=== PATIENT | male | born 1965 | race Caucasian/White ===

== ENCOUNTER 2017-08-19 07:12 | Inpatient (IN) | payer OTHER ==
[2017-07-23 17:20] LABS: % IMMATURE GRANULYOCYTES 0.2 % (0.0-1.1); ABSOLUTE IMMATURE GRANULOCYTES 0.01 10^3/uL (0.00-0.10); ADD DIFF? NO; ADD MORPH? NO; ADD SCAN? NO; ATYPICAL LYMPHOCYTE FLAG 10 (0-99); FRAGMENT RBC FLAG 20 (0-99); HEMATOCRIT 43.5 % (40.0-51.0); LEFT SHIFT FLG 0 (0-99); LIPEMIA HEMOLYSIS FLAG 90 (0-99); MEAN CELL HEMOGLOBIN 30.9 pg (27.9-34.1); MEAN CELL HEMOGLOBIN CONCENTR. 34.5 g/dL (32.4-36.7); MEAN CELL VOLUME 89.5 fL (81.5-99.8); PLATELET CLUMPS FLAG 10 (0-99); PLATELET COUNT 204 10^3/uL (150-400); RED BLOOD CELL COUNT 4.86 10^6/uL (4.40-6.38); RED CELL DISTRIBUTION WIDTH 12.2 % (11.5-15.2)
[2017-08-19] MEDS ORDERED: LR 1,000 ML IV ONE (07:34)
[2017-08-19] MEDS ORDERED: ROPIVACAINE 0.2% 80 MG, EPINEPHrine 0.2 MG, KETOROLAC TROMETHAMINE 30 MG in BAG 0 ML IU ONE (08:56)
[2017-08-19] MEDS ORDERED: ceFAZolin 2 GM/DEXTROSE 100 ML IV ONE (08:56)
[2017-08-19] MEDS ORDERED: TRANEXAMIC ACID 1,640 MG in NS 100 ML IV ONE (08:56)
[2017-08-19] MEDS ORDERED: ACETAMINOPHEN 325 MG TAB PO ONE (08:56)
[2017-08-19] MEDS ORDERED: POVIDONE-IODINE 20 ML in SODIUM CL IRRIG SOLUTION 500 ML IRR ONE (08:56)
[2017-08-19] MEDS ORDERED: DEXAMETHASONE 4 MG/ML VIAL IVP ONE (08:56)
[2017-08-19] MEDS ORDERED: FAMOTIDINE 20 MG TAB PO ONE (08:56)
[2017-08-19] MEDS ORDERED: ceFAZolin 1 GM VIAL ONE (09:31)
--- NOTE | 2017-08-19 09:38 | PDHPUP ---
History & Physical Update H&P update statement: This history and physical update is based on an assessment of the patient which was completed after admission or registration (within 24 hours), but prior to the surgery/procedure. H&P update: H&P reviewed & patient examined, no change in patient's condition since H&P completed
--- NOTE | 2017-08-19 09:51 | PDANEPAE ---
ANE History of Present Illness L hip resurfacing ANE Past Medical History - Cardiovascular History Hx Hypertension: No Hx Arrhythmias: No Hx Chest Pain: No Hx Coronary Artery / Peripheral Vascular Disease: No Hx CHF / Valvular Disease: No Hx Palpitations: No - Pulmonary History Hx COPD: No Hx Asthma/Reactive Airway Disease: No Hx Recent Upper Respiratory Infection: No Hx Oxygen in Use at Home: No Hx Sleep Apnea: No Sleep Apnea Screening Result - Last Documented: Negative - Neurologic History Hx Cerebrovascular Accident: No Hx Seizures: No Hx Dementia: No - Endocrine History Hx Diabetes: No Obesity: no - Renal History Hx Renal Disorders: No - Liver History Hx Hepatic Disorders: No - Neurological & Psychiatric Hx Hx Neurological and Psychiatric Disorders: No - Cancer History Hx Cancer: No - Congenital Disorder History Hx Congenital Disorders: No - GI History GERD: no Hx Gastrointestinal Disorders: No - Other Health History Other Health History: OA L hip - Chronic Pain History Chronic Pain: Yes - Surgical History Prior Surgeries: L ft 5th metatarsal age 21 ANE Review of Systems Review of Systems: - Exercise capacity METS (RN): 6 METS ANE Patient History - Allergies Allergies/Adverse Reactions: SEA FOOD Allergy (Severe, Uncoded 08/19/17 08:38) Anaphylaxis - Home Medications Home Medications: Naproxen Sodium [Aleve 220 MG (*)] 220 mg PO BID PRN 07/13/17 [Last Taken ] - NPO status NPO Since - Liquids (Date): 08/19/17 NPO Since - Liquids (Time): 06:00 NPO Since - Solids (Date): 08/18/17 NPO Since - Solids (Time): 20:30 - Anes Hx Anes Hx: no prior problems - Smoking Hx Smoking Status: Never smoked Marijuana use: No - Alcohol Use Alcohol Use: Other (one drink/day) - Family Anes Hx Family Anes Hx: none ANE Labs/Vital Signs - Labs Result Diagrams: 07/23/17 17:03 - Vital Signs Blood Pressure: 124/75 Heart Rate: 50 Respiratory Rate: 12 O2 Sat (%): 98 Height: 187.96 cm Weight: 81.647 kg ANE Physical Exam - Airway Neck exam: FROM Mallampati Score: Class 1 Mouth exam: normal dental/mouth exam (lower frontal caps) ANE Anesthesia Plan Anesthesia Plan: spinal
[2017-08-19] MEDS ORDERED: MIDAZOLAM 2 MG/2 ML VIAL IVP ONE (09:52)
[2017-08-19] MEDS ORDERED: BUPIVACAINE 0.5% 30 ML SDV ONE (09:55)
[2017-08-19] MEDS ORDERED: fentaNYL 100 MCG/2 ML INJ ONE ×2 (09:56→11:55)
[2017-08-19] MEDS ORDERED: PROPOFOL 200 MG/20 ML VIAL ONE ×3 (09:57→12:01)
[2017-08-19] MEDS ORDERED: ceFAZolin 1 GM/5 ML SYR ONE (09:59)
--- NOTE | 2017-08-19 10:00 | POSTANESTH ---
Post Anesthetic Evaluation Cardiovascular Status: Similar to Pre-Op Cond Respiratory Status: Normal, Stable Level of Consciousness/Mental Status: Can Participate in Eval Pain Control: Adequate, Prn Tx Ordered Nausea/Vomiting Control: Adequate, Prn Tx Ordered Complications Possibly Related to Anesthesia: None Noted
[2017-08-19] MEDS ORDERED: MIDAZOLAM 2 MG/2 ML VIAL ONE (10:04)
[2017-08-19] MEDS ORDERED: PROPOFOL/EMULSION 500 MG/50 ML BOTTLE IV ONE (10:39)
[2017-08-19] MEDS ORDERED: PHENYLEPHRINE 10 MG/ML SDV ONE (10:47)
--- NOTE | 2017-08-19 12:12 | POSTOPPROG ---
Post Op Note Date of Operation: 08/19/17 Surgeon: Yohan Ram Ad Operations Associate: Bryant Schmidt/Anabel Yusuf Anesthesiologist: Gorge Johnson Anesthesia: IV Sedation, Spinal Post-op Diagnosis: Left hip severe degenerative arthritis. Procedure: Left hip New hip resurfacing arthroplasty. Inf/Abcess present in the surg proc area at time of surgery?: No EBL: 100-500
[2017-08-19] MEDS ORDERED: MAGNESIUM HYDROXIDE 30 ML UDCUP PO PRN (12:13)
[2017-08-19] MEDS ORDERED: diphenhydrAMINE 25 MG CAP PO PRN (12:13)
[2017-08-19] MEDS ORDERED: PROMETHAZINE HCL 25 MG SUPPR PR PRN (12:13)
[2017-08-19] MEDS ORDERED: ONDANSETRON 4 MG/2 ML VIAL IVP PRN (12:13)
[2017-08-19] MEDS ORDERED: KETOROLAC 30 MG/1 ML SDV IVP PRN (12:13)
[2017-08-19] MEDS ORDERED: BISACODYL 10 MG SUPP PR PRN (12:13)
[2017-08-19] MEDS ORDERED: traMADol 50 MG TAB PO PRN (12:13)
[2017-08-19] MEDS ORDERED: LACTULOSE 20 GM/30 ML UDCUP PO PRN (12:13)
[2017-08-19] MEDS ORDERED: ONDANSETRON DISINTEGRATING 4 MG TAB PO PRN (12:13)
[2017-08-19] MEDS ORDERED: TEMAZEPAM 15 MG CAP PO PRN (12:13)
[2017-08-19] MEDS ORDERED: METOCLOPRAMIDE 10 MG/2 ML VIAL IVP PRN (12:13)
[2017-08-19] MEDS ORDERED: PROMETHAZINE HCL 25 MG/ML INJ IVP PRN (12:13)
[2017-08-19] MEDS ORDERED: oxyCODONE IR 5 MG TAB PO PRN (12:13)
[2017-08-19] MEDS ORDERED: DIPHENOXYLATE/ATROPINE LOMOTIL 1 TAB PO PRN (12:13)
[2017-08-19] MEDS ORDERED: POLYETHYLENE GLYCOL 3350 17 GM PKT PO PRN (12:13)
[2017-08-19] MEDS ORDERED: CYCLOBENZAPRINE 10 MG TAB PO PRN (12:13)
[2017-08-19] MEDS ORDERED: TRANEXAMIC ACID 650 MG TAB PO SCH (12:15)
[2017-08-19] MEDS ORDERED: LR 1,000 ML IV SCH (12:30)
[2017-08-19] MEDS ORDERED: NALOXONE HCL 0.4 MG/ML INJ IVP PRN (12:58)
[2017-08-19] MEDS ORDERED: fentaNYL 100 MCG/2 ML INJ IVP PRN (12:58)
--- NOTE | 2017-08-19 13:21 | GOP ---
[f rep st] OPERATIVE REPORT DATE OF OPERATION: 08/19/2017 SURGEON: Yohan Ram MD MANAGER SITE: Bryant cShmidt and Anabel Yusuf. ANESTHESIA: A combination of Marcaine, spinal, and IV sedation. ANESTHESIOLOGIST: Gorge Johnson M.D. PREOPERATIVE DIAGNOSIS: Left hip severe degenerative arthritis. POSTOPERATIVE DIAGNOSIS: Left hip severe degenerative arthritis. PROCEDURE PERFORMED: Left hip New hip resurfacing arthroplasty. FINDINGS: ESTIMATED BLOOD LOSS: About 300 mL. I used a [employer] hip resurfacing system. The acetabular component was 58 mm in d iameter and press-fit. The femoral head was 52 mm and cemented. He was awakened from anesthesia and rolled to the supine position on his [facility]. A long-leg compressive stocking and SCD were applied to the operative leg. He wore a stocking and SCD on the o pposite leg during the procedure. An abduction pillow was placed between his knees. He was taken to the PACU in satisfactory condition. There were no recognized intraoperative complications. The spo nge and needle count were correct on two occasions. Bryant Schmidt and Anabel Yusuf acted as surgical assistants. Their assistance was a medical necessi ty for safe completion of the procedure. DESCRIPTION OF PROCEDURE: The patient was given 2 g of IV Ancef preoperatively within 60 minutes of surgery. He also received IV tranexamic acid at a dose of 20 mg/kg. He was placed on the operating room table and given spinal anesthesia with Marcaine by Dr. Johnson. He was then placed supine and giv en IV sedation. A Arteaga catheter was not used. He wore a compressive stocking and SCD on the nonope rative leg. He was rolled to the right lateral decubitus position. An axillary roll was used and al l pressure points were padded. The position was secured with the pegboard table attachment. I was c areful to lock his pelvis in a vertical position. His perineum was isolated with plastic adhesive dr calderón. The left hip and left lower extremity were prepped with ChloraPrep. They were draped free usi ng sterile sheets, stockinette, and Ioban plastic drape. The World Health Organization time-out was performed to verify the correct patient identity and the correct surgical side and site. The Fraser time-out was also performed. I made a 7 inch straight oblique posterolateral hip skin incision. Subcutaneous tissues were sharply divided and hemostasis was obtained using electrocautery. The fascia addi was identified and split along the axis of its fibers. I then curved posteriorly and proximally, and split the fascia of the gluteus gaetano and bluntly split the muscle fibers in line with their orientation. His sciatic nerv e was identified and protected throughout the procedure. The Charnley self-retaining retractor was i nserted. The external rotators and the posterior hip capsule were divided as separate layers at the base of the femoral neck, tagged, and reflected posteriorly. The gluteus gaetano tendon was divided and tagged in order to improve exposure and release tension on the sciatic nerve. His hip was disloc ated posteriorly. I used a sizing gauge to check the diameter of the neck and concluded that 52 mm w as the proper head size. I performed a circumferential capsulotomy. I was able to retract the femor al head anteriorly and superiorly, and hold it out of place with appropriate retractors. The remnant of his damaged labrum was completely excised. His acetabulum was reamed sequentially up to 58 mm. I selected the New monoblock porous-coated acetabular component with an outside diameter of 58 mm. This was firmly impacted and was a very tight fit. I was careful to determine proper inclinati on and anteversion. I used the transverse acetabular ligament and other acetabular bony landmarks to help me determine proper cup orientation. He had some large posterior and inferior osteophytes, whi ch I removed with an osteotome and rongeur. I was careful to leave a good lip of bone and capsule ex tending beyond the anterior-inferior lip of the metal cup. I then returned to preparation of the femoral head. Using appropriate jigs and guides, I inserted a guide pin into the femoral head and neck. I was careful to position in such a way that there would b e no notching of the neck. The large sterile metal goniometer was used to check the neck shaft angle . I reamed over the guide pin and inserted the reaming guide. I used a cylindrical reamer down to t he head and neck junction. This was followed by the flat reamer and a chamfer reamer. The head was sized for 52 mm. There was no impingement or damage on the neck. He had some moderate-sized anterio r neck osteophytes, which I removed with a rongeur. I drilled a small hole in the lesser trochanter and inserted a suction cannula to create negative pre ssure in the medullary canal. Small holes were drilled on the flattened chamfer surfaces of the prep ared head for cement anchors. The head was thoroughly cleaned with the pulsating lavage and carefull y dried. I used a CarboJet device to blow dry the cancellous surfaces. A single batch of Simplex ce ment with tobramycin was mixed. At about 50 seconds, I poured the liquid cement into the head compon ent, inserted it onto the prepared femoral head and impacted it into place. Excess cement was remove d before it hardened. The acetabulum was irrigated, cleaned, and inspected, and the hip was reduced. Stability and range of motion were checked. I placed my finger along the anterior aspect of the ac etabular component and flexed the hip to 110 degrees. There was no anterior impingement. The suction cannula on the lesser trochanter was removed. The wound was thoroughly irrigated with a dilute Betadine solution. 40 mL of a joint anesthetic cocktail was injected into the capsule, the de ep musculature, and subcutaneous tissues along the skin edges. His sciatic nerve was reinspected and looked unharmed. The external rotators and the posterior hip capsule were repaired in separate laye rs with #2 FiberWire sutures through drill holes in the greater trochanter. This provided a strong p osterior capsular and external rotator repair. The gluteus gaetano tendon was repaired with two inte rrupted [id number] #2 FiberWire sutures. The fascia addi was repaired first with two interrupte d [id number] #2 FiberWire sutures, followed by a running #2 barbed Ethicon Stratafix PDO suture. The subcutaneous tissues were closed with a running 0 barbed Ethicon Stratafix Monoderm suture. Th e skin was closed with a running 3-0 barbed Ethicon Stratafix Monoderm subcuticular suture. The skin edges were reapproximated and sealed with Dermabond glue. The wound was covered with a strip of Tel fa, and everything was held in place with a piece of clear plastic Tegaderm. /[id number]/MODL
[2017-08-19 14:44] VITALS: RESP 16
[2017-08-19] MEDS ORDERED: ceFAZolin 2 GM/DEXTROSE 100 ML IV SCH (18:00)
[2017-08-19] MEDS: TRANEXAMIC ACID 650 MG TAB PO SCH (18:27)
[2017-08-19] MEDS: ACETAMINOPHEN 325 MG TAB PO SCH ×2 (18:27→23:48)
[2017-08-19] MEDS: ceFAZolin 2 GM in D5W 100 ML IV SCH (19:27)
[2017-08-19] MEDS: ASPIRIN 325 MG TAB PO SCH (21:22)
[2017-08-19] MEDS: FAMOTIDINE 20 MG TAB PO SCH (21:23)
[2017-08-19] MEDS: SENNOSIDES/DOCUSATE SODIUM TAB PO SCH (21:23)
[2017-08-19 23:45] VITALS: O2SAT 96
[2017-08-20] MEDS: TRANEXAMIC ACID 650 MG TAB PO SCH ×2 (02:45→10:17)
[2017-08-20] MEDS: ceFAZolin 2 GM in D5W 100 ML IV SCH (02:47)
[2017-08-20 03:18] VITALS: TEMP 98.4
[2017-08-20] MEDS: ACETAMINOPHEN 325 MG TAB PO SCH (05:25)
[2017-08-20 05:41] LABS: HEMATOCRIT 35.5 % (40.0-51.0); HEMOGLOBIN 12.9 g/dL (13.7-17.5)
--- NOTE | 2017-08-20 07:39 | SOAPPROG ---
SOAP Progress Note Assessment/Plan: Assessment: Afebrile. Awake and alert. He has been walking in his room and in the trejo. His dressing is dry. Sciatic nerve intact. Hemoglobin hematocrit are good. Postop films look excellent. Plan: Up with physical therapy today. Discharge later today. 08/20/17 07:38 Objective: Vital Signs Temp Pulse Resp BP Pulse Ox 36.9 C 62 16 137/79 H 96 08/20/17 03:17 08/20/17 03:17 08/20/17 03:17 08/20/17 03:17 08/20/17 03:17 Laboratory Results 08/20/17 05:21 08/19/17 08/20/17 08/21/17 05:59 05:59 05:59 Intake Total 3906 Output Total 650 Balance 3256 ICD10 Worksheet Patient Problems: Problems Problem Status Onset Osteoarthritis of left hip Acute
[2017-08-20 07:43] VITALS: BP 123/74; PULSE 63
--- NOTE | 2017-08-20 08:00 | GDS ---
[f rep st] DISCHARGE SUMMARY ADMISSION DIAGNOSIS: Left hip arthritis. DISCHARGE DIAGNOSIS: Left hip arthritis. OPERATION PERFORMED: Left hip New hip resurfacing arthroplasty. POSTOPERATIVE COMPLICATIONS: None. CONDITION ON DISCHARGE: Improved. DESCRIPTION OF HOSPITAL COURSE: The patient was admitted to the hospital the morning of surgery. Hi s admission CBC was normal. The same day, under a combination of Marcaine, spinal, and IV sedation, he underwent a left hip New hip resurfacing arthroplasty. Postoperatively, there were no comp lications. He was discharged the following day. DISPOSITION: The patient discharged to his home in [place]. He will go to outpatient phys ical therapy there. Continue aspirin 325 mg p.o. daily for 21 days. He has prescriptions for oxycod one and tramadol for pain control. Use an abduction pillow in bed for 3 weeks. Use ARASH stockings fo r 1 week. I will see him back in the office in 3 weeks. If there any problems, he is to call me at the office. /[id number]/MODL
[2017-08-20] MEDS: FAMOTIDINE 20 MG TAB PO SCH (08:27)
[2017-08-20] MEDS: SENNOSIDES/DOCUSATE SODIUM TAB PO SCH (08:28)
[2017-08-20] MEDS: ASPIRIN 325 MG TAB PO SCH (08:29)
[2017-08-20] MEDS ORDERED: FERROUS SULFATE 140 MG TAB.ER PO SCH (09:00)
--- NOTE | 2017-08-20 11:35 | ASDISCHSUM ---
Discharge Information Plan Status:Home with No Needs Medically Cleared to Leave: Discharge Date:08/20/2017 11:16 AM CM D/C Disposition:Home, Routine, Self-Care ADT D/C Disposition:Home, Routine, Self-Care Projected Discharge Date:08/20/2017 11:16 AM Transportation at D/C: Discharge Delay Reason: Follow-Up Date:08/20/2017 11:16 AM Discharge Slot: Final Diagnosis: Placement Information Patient Contact Information Contact Name:JESUS Relationship: Address:[address] [address] Work Phone: City:[place] Alternate Phone: [facility]/Zip Code:[place] [address] Email: Financial Information Financial Class:HMO and PPO Plans Primary Plan Desc:H[employer] Primary Plan Number:[id number] Secondary Plan Desc: Secondary Plan Number: Assessment Information [facility] CM Progress Note CM Note CM Note Notes: Pt medically stable for d/c, no CM d/c needs identified. Date Signed: 08/20/2017 11:35 AM Electronically Signed By:MITZI Kumar Intervention Information
== END 2017-08-20 11:16 | disposition home or self-care (01) | DRG 470 ==
LOC: F3N 07:12
PROVIDERS: ADMIT Orthopaedic Surgery; ATTEND Orthopaedic Surgery
PROC: 0SUB0BZ Supplement Left Hip Joint with Resurfacing Device, Open Approach (ICD-10-PCS; principal; 2017-08-19 09:30)
DX: M16.12 Unilateral primary osteoarthritis, left hip (principal)
CPT/HCPCS: 97110-GP; 97116-GP; 97161-GP; 97165-GO; C1713; C1769; J0171; J0690; J1100; J1885; J2250; J2370; J2704; J2795; J3010